=== PATIENT | female | born 1935 | race Caucasian/White ===

== ENCOUNTER 2018-02-06 07:40 | Day surgery (SDC) | payer MEDICARE, OTHER ==
[~2018-02-06 07:40] MED LIST: Acetaminophen TAB* 325 MG PO PRN; Buffered Lidocaine 0.9% SYRIN* 5 ML/SYR SYRINGE INTRADERM ONE
[2018-02-06] MEDS ORDERED: Lidocaine 1% MPF* 2 ML VIAL ONE (07:44)
[2018-02-06] MEDS ORDERED: Proparacaine 0.5% OPHTH.SOL* 15 ML BTL ONE (07:44)
[2018-02-06] MEDS ORDERED: Phenylephrine 2.5% OPTH.SOL* 2 ML BTL ONE (07:44)
[2018-02-06] MEDS ORDERED: Neomycin/Polymy/Dex OPTH.SUSP* MAXITROL 0.1% 5 ML ONE (07:44)
[2018-02-06] MEDS ORDERED: Povidone Iodine 5% OPTH* 30 ML BTL ONE (07:44)
[2018-02-06] MEDS ORDERED: acetaZOLAMIDE TAB* 250 MG ONE (07:44)
[2018-02-06] MEDS ORDERED: Ketorolac 0.5% OPHTH (NF) 0.5 % 5 ML BTL ONE (07:44)
[2018-02-06] MEDS ORDERED: Lidocaine 2% EPI 1:200000 MPF*10-20 ML VIAL ONE (07:44)
[2018-02-06] MEDS ORDERED: Cyclopentolate 1% OPTH.SOL* 2 ML BTL ONE (07:44)
[2018-02-06] MEDS ORDERED: Midazolam* 1 MG/ML 2 ML VIAL (2 MG) ONE ×2 (07:57→10:01)
[2018-02-06 10:34] VITALS: BP 154/75
--- NOTE | 2018-02-06 11:45 | OP ---
0OPERATIVE NOTE: DATE OF OPERATION: 02/06/18 DATE OF : 35 SURGEON: Aldo Syed M.D. PREOPERATIVE DIAGNOSIS: Cataract, right eye. POSTOPERATIVE DIAGNOSIS: Cataract, right eye. OPERATIVE PROCEDURE: Extracapsular cataract extraction with IOL, right eye. DESCRIPTION OF PROCEDURE: The patient was brought to the operating room after being given 1/2% Alcai ne with epinephrine drops in the preoperative area. The eye was prepped and draped in the usual ster ile fashion. Sterile drape and eyelid speculum were placed. Again, topical 1/2% Alcaine with epinep hrine was given. A paracentesis incision was made at the 9 o'clock position with the No.75 blade. Cl ear cornea incision 2.2 x 2.2-mm was created at the 12 o'clock position starting at the anterior limb us using the 2.2-mm keratome. The anterior chamber was irrigated with 0.4 mL of 1% non-preservative intracameral lidocaine and filled with DisCoVisc. A capsulorrhexis was completed using the cystotome and the Utrata forceps. Hydrodissection was performed with balanced salt solution. The lens nucleu s was removed with the Phacoemulsification handpiece without incident. Cortex was removed with the ir rigation-aspiration handpiece. The capsular bag was re-inflated using DisCoVisc and an [id number] 15.5 i mplant was inserted with the shooter. The irrigation-aspiration handpiece was used to remove all res idual DisCoVisc. The eye was refilled with balanced salt solution and the wound checked and found to be watertight. Topical Maxitrol drops were given. [id number]/[facility] #: [id number]
== END 2018-02-06 10:31 | disposition home or self-care (01) ==
LOC: OREAST 07:40
PROVIDERS: ATTEND Specialist
DX: H25.811 Combined forms of age-related cataract, right eye (principal); H33.8 Other retinal detachments; I10 Essential (primary) hypertension; E78.5 Hyperlipidemia, unspecified; E03.9 Hypothyroidism, unspecified; M19.90 Unspecified osteoarthritis, unspecified site; Z86.73 Personal history of transient ischemic attack (TIA), and cerebral infarction without residual deficits; K21.9 Gastro-esophageal reflux disease without esophagitis; Z87.440 Personal history of urinary (tract) infections
CPT/HCPCS: A9270-GY; J2250; V2632

== ENCOUNTER 2018-02-13 08:59 | Day surgery (SDC) | payer MEDICARE, OTHER ==
[2018-02-13] MEDS ORDERED: Cyclopentolate 1% OPTH.SOL* 2 ML BTL ONE (09:29)
[2018-02-13] MEDS ORDERED: Proparacaine 0.5% OPHTH.SOL* 15 ML BTL ONE (09:29)
[2018-02-13] MEDS ORDERED: Povidone Iodine 5% OPTH* 30 ML BTL ONE (09:29)
[2018-02-13] MEDS ORDERED: Neomycin/Polymy/Dex OPTH.SUSP* MAXITROL 0.1% 5 ML ONE (09:29)
[2018-02-13] MEDS ORDERED: Lidocaine 1% MPF* 2 ML VIAL ONE (09:29)
[2018-02-13] MEDS ORDERED: Lidocaine 2% EPI 1:200000 MPF*10-20 ML VIAL ONE (09:29)
[2018-02-13] MEDS ORDERED: acetaZOLAMIDE TAB* 250 MG ONE (09:29)
[2018-02-13] MEDS ORDERED: Ketorolac 0.5% OPHTH (NF) 0.5 % 5 ML BTL ONE (09:29)
[2018-02-13] MEDS ORDERED: Phenylephrine 2.5% OPTH.SOL* 2 ML BTL ONE (09:29)
[2018-02-13] MEDS ORDERED: Midazolam* 1 MG/ML 2 ML VIAL (2 MG) ONE (10:53)
[2018-02-13 11:34] VITALS: BP 151/75
--- NOTE | 2018-02-13 14:30 | OP ---
DATE OF OPERATION: 02/13/18 - [facility] DATE OF : 35 SURGEON: Aldo Syed M.D. PREOPERATIVE DIAGNOSIS: Cataract, left eye. POSTOPERATIVE DIAGNOSIS: Cataract, left eye. OPERATIVE PROCEDURE: Extracapsular cataract extraction with intraocular lens implant left eye. DESCRIPTION OF PROCEDURE: The patient was brought to the operating room after being given 1/2% Alcaine with epinephrine drops in the preoperative area. The eye was prepped and draped in the usual sterile fashion. Sterile drape and eyelid speculum were placed. Again, topical 1/2% Alcaine with epinephrine was given. A paracentesis incision was made at the 3 o'clock position with the No.75 blade. Clear cornea incision 2.2 x 2.2-mm was created at the 6 o'clock position starting at the anterior limbus using the 2.2-mm keratome. The anterior chamber was irrigated with 0.4 mL of 1% non-preservative intracameral lidocaine and filled with DisCoVisc. A capsulorrhexis was completed using the cystotome and the Utrata forceps. Hydrodissection was performed with balanced salt solution. The lens nucleus was removed with the Phacoemulsification handpiece without incident. Cortex was removed with the irrigation-aspiration handpiece. The capsular bag was re-inflated using DisCoVisc and an [id number] 15.5 implant was inserted with the shooter. The irrigation-aspiration handpiece was used to remove all residual DisCoVisc. The eye was refilled with balanced salt solution and the wound checked and found to be watertight. Topical Maxitrol drops were given. [id number]/[facility] #: [id number] MTDD
== END 2018-02-13 11:43 | disposition home or self-care (01) ==
LOC: OREAST 08:59
PROVIDERS: ATTEND Specialist
DX: H25.812 Combined forms of age-related cataract, left eye (principal); H33.8 Other retinal detachments; E03.9 Hypothyroidism, unspecified; E78.5 Hyperlipidemia, unspecified; I10 Essential (primary) hypertension; Z87.440 Personal history of urinary (tract) infections
CPT/HCPCS: A9270-GY; J2250; V2632

== ENCOUNTER → 2018-08-20 11:12 | Emergency (ER) | payer MEDICARE, OTHER ==
[2018-08-20 13:18] VITALS: BP 109/77
[2018-08-20 14:16] LABS: Hematocrit 36 % (35-47); Hemoglobin 12.6 g/dl (12.0-16.0); Mean Corpuscular HGB Conc 35 g/dl (31-36); Mean Corpuscular Hemoglobin 33 pg (27-31); Mean Corpuscular Volume 94 fL (80-97); Mean Platelet Volume 6.8 um3 (7.4-10.4); Platelet Count 219 10^3/ul (150-450); Red Blood Count 3.88 10^6/ul (4.00-5.40); Red Cell Distribution Width 12 % (10.5-15); White Blood Count 5.4 10^3/ul (3.5-10.8)
[2018-08-20 14:32] LABS: INR 0.97 (0.77-1.02)
[2018-08-20 14:38] LABS: EGFR Non-African American 51.8 (>60)
--- NOTE | 2018-08-20 15:17 | RAD ---
INDICATION: RIGHT lower extremity edema and this morning with interval improvement. COMPARISON: No relevant prior exams available on the [facility] PACS for comparison. TECHNIQUE: Lloyd scale, color Doppler, and spectral analysis of the deep veins of the RIGHT lower extremity. Vessel compression, phasicity, and augmentation assessed. REPORT: The RIGHT common femoral, great saphenous, profunda femoral, femoral, popliteal, peroneal, and posterior tibial veins are patent. Patency of the LEFT common femoral vein documented. IMPRESSION: No evidence for RIGHT lower extremity deep venous thrombosis.
--- NOTE | 2018-08-20 15:29 | ED ---
Lower Extremity - HPI Summary HPI Summary: Patient presents w/ right lower extremity swelling which started yesterday. She denies a history of swelling in this leg however admits Sunday and Sunday she was both on her feet, standing, for a while and then sitting for a while. She believes these activities contributed to swelling in this leg as she is typically able to move about throughout the day and rest as she needs. She was standing and then sitting for periods as her family was in town to celebrate her birthday and again this is not normal activity for her. She noticed the swelling yesterday during the day and it persisted today which is why she came in. She denies chest pain, shortness of breath, fever, chills, pain in the leg however she does have chronic low back pain that radiates into bilateral hips ( "sciatica"). She had lumbar laminectomy surgery in June 2018 with a surgeon at [facility]. She said she felt great the first 2 weeks (sciatica was gone) however developed return of her sciatica another 2 weeks later and has been continuing to deal with this pain since. She just saw her neurosurgical physician assistant banquet manager last week who recommended Flexeril - no concerns for infection. The patient reports she gets very tired when she takes this and it helps her sleep. Other medications she is currently taking are Lyrica and tramadol however she does not like to take the tramadol. She has a follow-up with her neurosurgical provider in another 3 weeks. No history of cardiovascular issues specifically congestive heart failure or peripheral artery disease. She reports while she's been sitting on the stretcher here in ED, waiting for her labs and ultrasound report to come back, her leg looks " much better". She reports her ankle was puffy before and now she can see the bones there. She is moving this leg well with minimal discomfort in her back only. Reports she would like to go home now as today's her birthday. Only came in today because her son who's a doctor called to check on her and asked her to get checked out - she called her PCP who sent her here w/ concern for clot in her leg. - History of Current Complaint Chief Complaint: EDExtremityLower Stated Complaint: RT LEG SWELLING Time Seen by Provider: 08/20/18 14:15 Hx Obtained From: Patient Pain Intensity: 0 - Allergies/Home Medications Allergies/Adverse Reactions: Allergies Allergy/AdvReac Type Severity Reaction Status Date / Time diclofenac Allergy Unknown ULCER Verified 08/20/18 11:24 erythromycin base Allergy Unknown Unknown Verified 08/20/18 11:24 Reaction Details ibuprofen [From Advil] Allergy Unknown Unknown Verified 08/20/18 11:24 Reaction Details metronidazole [From Flagyl] Allergy Unknown Unknown Verified 08/20/18 11:24 Reaction Details rofecoxib [From Vioxx] Allergy Unknown Unknown Verified 08/20/18 11:24 Reaction Details Sulfa (Sulfonamide Allergy Unknown Unknown Verified 08/20/18 11:24 Antibiotics) Reaction Details cefuroxime [From Ceftin] Allergy Unknown Verified 08/20/18 11:24 Reaction Details ketorolac Allergy Rash And Verified 08/20/18 11:24 Itching Penicillins Allergy Unknown Verified 08/20/18 11:24 Reaction Details PMH/Surg Hx/FS Hx/Imm Hx Previously Healthy: Yes Endocrine/Hematology History: Reports: Hx Thyroid Disease Denies: Hx Anticoagulant Therapy, Hx Blood Disorders, Hx Diabetes Cardiovascular History: Reports: Hx Hypercholesterolemia, Hx Hypertension - ON MEDS, Other Cardiovascular Problems/Disorders - HIGH CHOLESTEROL Denies: Hx Congestive Heart Failure, Hx Pacemaker/ICD Respiratory History: Reports: Hx Seasonal Allergies Denies: Hx Asthma GI History: Reports: Hx Diverticulosis, Hx Gastroesophageal Reflux Disease, Hx Irritable Bowel, Hx Ulcer History: Reports: Other Problems/Disorders - incontinence Denies: Hx Dialysis, Hx Renal Disease Musculoskeletal History: Reports: Hx Arthritis, Hx Back Problems, Hx Orthopedic Injury - Fractured Right Hip; Fractured Left Wrist, Hx Scoliosis, Other Musculoskeletal History Denies: Hx Rheumatoid Arthritis, Hx Osteoporosis Sensory History: Reports: Hx Cataracts - PRESENTLY, Hx Contacts or Glasses Denies: Hx Hearing Aid Opthamlomology History: Reports: Hx Cataracts - PRESENTLY, Hx Contacts or Glasses Neurological History: Reports: Hx Transient Ischemic Attacks (TIA), Other Neuro Impairments/Disorders - PAIN CLINIC PT. Psychiatric History: Reports: Hx Depression Denies: Hx Panic Disorder - Cancer History Hx Chemotherapy: No Hx Radiation Therapy: No - Surgical History Surgery Procedure, Year, and Place: RT-HIP PIN;. HYSTERECTOMY;. TONSILECTOMY, . LASER EYE REPAIR;. BILATERAL CATARACTS REMOVAL; Hx Anesthesia Reactions: No Infectious Disease History: No Infectious Disease History: Denies: History Other Infectious Disease, Traveled Outside the [place] in Last 30 Days - Social History Occupation: Retired Alcohol Use: None Hx Substance Use: No Substance Use Type: Reports: None Hx Tobacco Use: No Smoking Status (MU): Never Smoked Tobacco Have You Smoked in the Last Year: No Review of Systems Constitutional: Negative Negative: Fever, Chills, Fatigue Negative: Chest Pain Negative: Shortness Of Breath Gastrointestinal: Negative Genitourinary: Negative Positive: Arthralgia, Myalgia Skin: Negative Neurological: Negative Psychological: Normal All Other Systems Reviewed And Are Negative: Yes Physical Exam Triage Information Reviewed: Yes Vital Signs On Initial Exam: Initial Vitals Temp Pulse Resp BP Pulse Ox 98.1 F 87 18 124/72 96 08/20/18 11:20 08/20/18 11:20 08/20/18 11:20 08/20/18 11:20 08/20/18 11:20 Vital Signs Reviewed: Yes Appearance: Positive: Well-Appearing, No Pain Distress, Well-Nourished Skin: Positive: Warm, Skin Color Reflects Adequate Perfusion, Dry - LE's are same color B/L - no lesions, no rash, no erythema, no ecchymosis Head/Face: Positive: Normal Head/Face Inspection Eyes: Positive: EOMI ENT: Positive: Hearing grossly normal Respiratory/Lung Sounds: Positive: Breath Sounds Present Cardiovascular: Positive: Pulses are Symmetrical in both Upper and Lower Extremities. Negative: Leg Edema Left, Leg Edema Right - (-) Yenni's Abdomen Description: Positive: Nontender, Soft Musculoskeletal: Positive: Strength/ROM Intact, Pain @ - has reported mild pain in lower back w/ Rt LE movements - strength intact, Other - Rt thigh, knee, tibial region, ankle and foot appear to be normal and are NTTP Neurological: Positive: Normal, Sensory/Motor Intact, Alert, Oriented to Person Place, Time, CN Intact II-III Psychiatric: Positive: Normal Diagnostics - Vital Signs Vital Signs Temp Pulse Resp BP Pulse Ox 08/20/18 13:15 98.0 F 80 18 109/77 97 08/20/18 11:20 98.1 F 87 18 124/72 96 - Laboratory Lab Results: Lab Results 08/20/18 08/20/18 08/20/18 Range/Units 14:04 14:04 14:04 WBC 5.4 (3.5-10.8) 10^3/ul RBC 3.88 L (4.00-5.40) 10^6/ul Hgb 12.6 (12.0-16.0) g/dl Hct 36 (35-47) % MCV 94 (80-97) fL MCH 33 H (27-31) pg MCHC 35 (31-36) g/dl RDW 12 (10.5-15) % Plt Count 219 (150-450) 10^3/ul MPV 6.8 L (7.4-10.4) um3 INR (Anticoag Therapy) 0.97 (0.77-1.02) APTT 31.3 (26.0-36.3) seconds Sodium 140 (135-145) mmol/L Potassium 4.2 (3.5-5.0) mmol/L Chloride 107 (101-111) mmol/L Carbon Dioxide 27 (22-32) mmol/L Anion Gap 6 (2-11) mmol/L BUN 16 (6-24) mg/dL Creatinine 1.02 H (0.51-0.95) mg/dL Est GFR ( Amer) 62.6 (>60) Est GFR (Non-Af Amer) 51.8 (>60) BUN/Creatinine Ratio 15.7 (8-20) Glucose 95 (70-100) mg/dL Calcium 9.3 (8.6-10.3) mg/dL Total Bilirubin 0.60 (0.2-1.0) mg/dL AST 19 (13-39) U/L ALT 13 (7-52) U/L Alkaline Phosphatase 83 (34-104) U/L Total Protein 6.8 (6.4-8.9) g/dL Albumin 4.0 (3.2-5.2) g/dL Globulin 2.8 (2-4) g/dL Albumin/Globulin Ratio 1.4 (1-3) Result Diagrams: 08/20/18 14:04 08/20/18 14:04 Lab Statement: Any lab studies that have been ordered have been reviewed, and results considered in the medical decision making process. Re-Evaluation - Re-Evaluation First Eval Change: Improved Lower Extremity Course/Dx - Course Course Of Treatment: U/S: neg for DVT. Labs and vitals w/o s/sx of infection - Diagnoses Provider Diagnoses: Leg edema, right Discharge - Sign-Out/Discharge Documenting (check all that apply): Patient Departure - Discharge Plan Condition: Stable Disposition: HOME Patient Education Materials: Leg Edema (ED) Referrals: Josie Clement MD [Primary Care Provider] - Additional Instructions: Rest, elevate and perform gentle stretches to aid in prevention of return of swelling in Right leg. Avoid prolonged sitting with legs down in chair or standing. If symptoms return or your develop redness/swelling/chest pain/ shortness of breath, seek medical attention immediately. Otherwise, follow-up with PCP this week for recheck of leg. - Billing Disposition and Condition Condition: STABLE Disposition: Home
== END | disposition home or self-care (01) ==
LOC: ED 11:12
DX: R60.0 Localized edema (principal); Z86.73 Personal history of transient ischemic attack (TIA), and cerebral infarction without residual deficits; F32.9 Major depressive disorder, single episode, unspecified
CPT/HCPCS: 36415; 80053; 85027; 85610; 85730; 99282

== ENCOUNTER 2019-08-09 15:06 | Emergency (ER) | payer MEDICARE, OTHER ==
[2019-08-09 15:46] VITALS: BP 133/85
--- NOTE | 2019-08-09 16:46 | UC ---
Laceration HPI - HPI Summary HPI Summary: Pt presents with c/o laceration to left tip of thumb. Pt was using new knives at home and "cut" her thumb ~ 1500. Pt thinks she is UTD with tetanus and states she will f/u with PCP regarding need for booster. - History Of Current Complaint Chief Complaint: UCLaceration Stated Complaint: THUMB LAC Time Seen by Provider: 08/09/19 16:29 Hx Obtained From: Patient Laceration Location: Finger Mechanism Of Injury: Sharp Trauma Onset/Duration: Sudden Onset Severity: Mild Pain Intensity: 3 Aggravating Factors: Movement - Allergies/Home Medications Allergies/Adverse Reactions: Allergies Allergy/AdvReac Type Severity Reaction Status Date / Time shellfish derived Allergy Severe Swelling Verified 08/09/19 15:47 diclofenac Allergy Unknown ULCER Verified 08/09/19 15:47 erythromycin base Allergy Unknown Unknown Verified 08/09/19 15:47 Reaction Details ibuprofen [From Advil] Allergy Unknown Unknown Verified 08/09/19 15:47 Reaction Details metronidazole [From Flagyl] Allergy Unknown Unknown Verified 08/09/19 15:47 Reaction Details rofecoxib [From Vioxx] Allergy Unknown Unknown Verified 08/09/19 15:47 Reaction Details Sulfa (Sulfonamide Allergy Unknown Unknown Verified 08/09/19 15:47 Antibiotics) Reaction Details cefuroxime [From Ceftin] Allergy Unknown Verified 08/09/19 15:47 Reaction Details ketorolac Allergy Rash And Verified 08/09/19 15:47 Itching Penicillins Allergy Unknown Verified 08/09/19 15:47 Reaction Details PMH/Surg Hx/FS Hx/Imm Hx Previously Healthy: Yes Other History Of: Negative For: Anticoagulant Therapy - Surgical History Surgical History: Yes Surgery Procedure, Year, and Place: Lumbar Laminectomy 06/2018 Dr. Cartagena. RT- HIP PIN;. HYSTERECTOMY;. TONSILECTOMY,. LASER EYE REPAIR;. BILATERAL CATARACTS REMOVAL; - Family History Known Family History: Positive: Cardiac Disease - Social History Occupation: Retired Lives: With Family Alcohol Use: None Substance Use Type: None Smoking Status (MU): Never Smoked Tobacco Have You Smoked in the Last Year: No - Immunization History Most Recent Influenza Vaccination: fall 2012 Most Recent Tetanus Shot: unknown Most Recent Pneumonia Vaccination: 2009 Vaccination Up to Date: Yes Review of Systems All Other Systems Reviewed And Are Negative: Yes Constitutional: Positive: Negative Skin: Positive: Other - laceration left thumb Eyes: Positive: Negative ENT: Positive: Negative Respiratory: Positive: Negative Cardiovascular: Positive: Negative Gastrointestinal: Positive: Negative Genitourinary: Positive: Negative Motor: Positive: Negative Neurovascular: Positive: Negative Musculoskeletal: Positive: Myalgia - left distal thumb Neurological: Positive: Negative Psychological: Positive: Negative Is Patient Immunocompromised?: No Physical Exam Triage Information Reviewed: Yes Appearance: Well-Appearing Vital Signs: Initial Vital Signs Temp 98.7 F 08/09/19 15:42 Pulse 62 08/09/19 15:42 Resp 16 08/09/19 15:42 BP 133/85 08/09/19 15:42 Pulse Ox 97 08/09/19 15:42 Vital Signs Reviewed: Yes Eye Exam: Normal ENT: Positive: Hearing grossly normal Neck exam: Normal Respiratory: Positive: No respiratory distress Musculoskeletal Exam: Normal Musculoskeletal: Positive: Strength Intact, ROM Intact Neurological Exam: Normal Psychological Exam: Normal Skin Exam: Other - circular laceration of distal left thumb. it is a flap that is not moving, hematoma, bleeding controlled. Laceration Repair - Laceration Repair 1 Description: Irregular Laceration Size After Repair: Length (cm) - 1, Width (mm) - 3, Depth (mm) - 2 Modified For Repair: No Cleansing Completed Via Routine Prep: Yes Closure Material: Skin Adhesive, SteriStrips Closure Method: Single Layer Suture Of: Skin Laceration Course/Dx - Differential Dx - Laceration/Wound Differental Diagnoses: Avulsion, Hematoma - Diagnosis Provider Diagnosis: Laceration of left thumb Discharge ED - Sign-Out/Discharge Documenting (check all that apply): Patient Departure All imaging exams completed and their final reports reviewed: No Studies - Discharge Plan Condition: Stable Disposition: HOME Patient Education Materials: Finger Laceration (ED), Skin Adhesive Care (ED), Steristrips (ED) Referrals: Josie Clement MD [Primary Care Provider] - As Soon As Possible Additional Instructions: Please follow up with your PCP as soon as possible. Please keep wound clean and dry for the next 48 hours. You may remove and change the dressing if it gets wet or soiled before the 48 hours. Please do not put antibiotic ointment on the wound. - Billing Disposition and Condition Condition: STABLE Disposition: Home
== END 2019-08-09 17:05 | disposition home or self-care (01) ==
LOC: UCEAST 15:06
DX: S61.012A Laceration without foreign body of left thumb without damage to nail, initial encounter (principal); W26.0XXA Contact with knife, initial encounter; Y93.89 Activity, other specified; Y92.009 Unspecified place in unspecified non-institutional (private) residence as the place of occurrence of the external cause; Z88.8 Allergy status to other drugs, medicaments and biological substances; Z88.1 Allergy status to other antibiotic agents; Z91.013 Allergy to seafood; Z88.2 Allergy status to sulfonamides; Z88.0 Allergy status to penicillin; Z88.5 Allergy status to narcotic agent
CPT/HCPCS: 12001; 99212; G0463

== ENCOUNTER 2021-03-03 17:21 | Inpatient (IN) ==
[2021-03-03] MEDS ORDERED: Morphine 4 MG/ML VIAL (1 ml) IV ONE ×2 (17:38→18:08)
[2021-03-03 18:04] LABS: ABS Eosinophils 0.1 10^3/ul (0-0.6); ABS Monocytes 0.4 10^3/ul (0-0.8); ABS Neutrophils 3.1 10^3/ul (1.5-7.7); Eosinophil % 1.3 %; Hematocrit 37 % (35-47); Hemoglobin 12.6 g/dL (12.0-16.0); Lymphocyte % 35.3 %; Mean Corpuscular HGB Conc 34 g/dL (31-36); Mean Corpuscular Hemoglobin 32 pg (27-31); Mean Corpuscular Volume 95 fL (80-97); Mean Platelet Volume 6.6 fL (7.4-10.4); Platelet Count 179 10^3/uL (150-450); Red Blood Count 3.91 10^6 /uL (3.70-4.87); Red Cell Distribution Width 13 % (10-15); White Blood Count 5.6 10^3/uL (3.5-10.8)
[2021-03-03 18:14] LABS: Calcium 8.8 mg/dL (8.6-10.3); Potassium 4.1 mmol/L (3.5-5.0); Total Bilirubin 0.6 mg/dL (0.2-1.0)
[2021-03-03 18:20] LABS: Albumin/Globulin Ratio 1.8 (1-3); EGFR African American 67.6 (>60); EGFR Non-African American 55.9 (>60); Globulin 2.2 g/dL (2-4); Total Protein 6.2 g/dL (6.4-8.9)
[2021-03-03] MEDS ORDERED: HYDROmorphone 1 MG/1 ML SYRINGE IV SCH (22:00)
[2021-03-03] MEDS ORDERED: Senna TAB 8.6 mg TAB PO PRN (22:08)
[2021-03-03] MEDS: Morphine 2 MG/ML SYRINGE IV PRN (23:39)
[2021-03-04] MEDS: Lidocaine PATCH 5% PATCH TRANSDERM SCH ×2 (01:24→09:23)
[2021-03-04] MEDS: Enoxaparin 40 MG/0.4 ML SYR SUBCUT SCH ×2 (01:24→20:15)
[2021-03-04] MEDS: Morphine 2 MG/ML SYRINGE IV PRN (05:18)
[2021-03-04] MEDS ORDERED: oxyCODONE/Acetamin 5/325 mg TAB PO PRN (09:18)
[2021-03-04] MEDS: Senna TAB 8.6 mg TAB PO SCH (20:15)
[2021-03-04] MEDS: Lidocaine Patch REMOVE PATCH PATCH OFF SCH (22:23)
[2021-03-05] MEDS: Morphine 2 MG/ML SYRINGE IV PRN ×2 (02:22→08:15)
[2021-03-05] MEDS ORDERED: NS 0.9% 1000 ml BAG 1,000 ML IV SCH (06:45)
[2021-03-05] MEDS: Lidocaine PATCH 5% PATCH TRANSDERM SCH (08:16)
[2021-03-05] MEDS ORDERED: Midazolam 2 mg/2 ml VIAL 1 mg/ml 2 ml VIAL (2 mg) ONE (09:01)
[2021-03-05] MEDS ORDERED: fentaNYL 250 mcg/5 ml 50 MCG/ML 5 ml VIAL (250 MCG) ONE (09:01)
[2021-03-05] MEDS ORDERED: Rocuronium 50 mg VIAL 10 mg/ml 5 ml VIAL (50 mg) ONE (09:01)
[2021-03-05] MEDS ORDERED: Lidocaine 2% PF 5 ML VIAL ONE (09:02)
[2021-03-05] MEDS ORDERED: EPHEDrine (Pressors) 50 MG/ML VIAL ONE (09:02)
[2021-03-05] MEDS ORDERED: Sterile Water for Inj 0 ML ONE (09:02)
[2021-03-05] MEDS ORDERED: Phenylephrine 40 mcg/mL 10mL (400mcg) SYRINGE ONE ×2 (09:02→10:11)
[2021-03-05] MEDS ORDERED: Propofol 10 MG/ML 20 ML BTL ONE (09:02)
[2021-03-05] MEDS ORDERED: Clindamycin 900 MG/D5W BAG 900 MG/50 ML BAG IVPB ONE (09:28)
[2021-03-05] MEDS ORDERED: Lidocaine 1% w EPI 1:100,000 MDV 20 ML VIAL ONE (09:37)
[2021-03-05] MEDS ORDERED: Bupivacaine 0.25% SDV 30 ML ONE (09:38)
[2021-03-05] MEDS ORDERED: Phenylephrine IV 10 MG/ML 1 ml VIAL ONE (10:12)
[2021-03-05] MEDS ORDERED: Ondansetron 4 mg VIAL 2 MG/ML 2 ml VIAL ONE ×2 (10:38→12:07)
[2021-03-05] MEDS ORDERED: DiMENhydriNATE IV 50 mg/ml 1 ml VIAL IV PUSH PRN (10:41)
[2021-03-05] MEDS ORDERED: fentaNYL 100 mcg/2 ml 50 MCG/ML VIAL IV PRN (10:41)
[2021-03-05] MEDS ORDERED: Ondansetron 4 mg VIAL 2 MG/ML 2 ml VIAL IV PRN (10:41)
[2021-03-05] MEDS ORDERED: Naloxone 0.4 mg VIAL 0.4 mg/ml 1 ml VIAL IV PRN (10:41)
[2021-03-05] MEDS ORDERED: HYDROmorphone 1 MG/1 ML SYRINGE IV PRN (10:41)
[2021-03-05] MEDS ORDERED: Acetaminophen IV 1 GM/100ML 100 ML ONE (10:56)
[2021-03-05 13:38] LABS: ABS Eosinophils 0.2 10^3/ul (0-0.6); ABS Lymphocytes 0.7 10^3/ul (1.0-4.8); ABS Monocytes 0.4 10^3/ul (0-0.8); ABS Neutrophils 4.9 10^3/ul (1.5-7.7); Eosinophil % 3.6 %; Hematocrit 34 % (35-47); Hemoglobin 11.6 g/dL (12.0-16.0); Lymphocyte % 10.7 %; Mean Corpuscular HGB Conc 34 g/dL (31-36); Mean Corpuscular Hemoglobin 33 pg (27-31); Mean Corpuscular Volume 95 fL (80-97); Mean Platelet Volume 6.7 fL (7.4-10.4); Platelet Count 124 10^3/uL (150-450); Red Blood Count 3.54 10^6 /uL (3.70-4.87); Red Cell Distribution Width 13 % (10-15); White Blood Count 6.2 10^3/uL (3.5-10.8)
[2021-03-05 13:46] LABS: Activated Partial Thrombo Time 27.5 seconds (26.0-38.0); INR 1.17 (0.82-1.09)
[2021-03-05 13:53] LABS: EGFR African American 58.3 (>60); EGFR Non-African American 48.2 (>60)
[2021-03-05] MEDS: Clindamycin 600 MG/D5W BAG 600 MG/50 ML BAG IV SCH (18:10)
[2021-03-05] MEDS: Senna TAB 8.6 mg TAB PO SCH (20:14)
[2021-03-05] MEDS: Lidocaine Patch REMOVE PATCH PATCH OFF SCH (21:01)
[2021-03-06] MEDS: Clindamycin 600 MG/D5W BAG 600 MG/50 ML BAG IV SCH ×2 (02:00→10:10)
[2021-03-06 05:43] LABS: ABS Eosinophils 0.3 10^3/ul (0-0.6); ABS Lymphocytes 0.9 10^3/ul (1.0-4.8); ABS Monocytes 0.5 10^3/ul (0-0.8); ABS Neutrophils 3.2 10^3/ul (1.5-7.7); Eosinophil % 6.2 %; Hematocrit 32 % (35-47); Hemoglobin 11.1 g/dL (12.0-16.0); Lymphocyte % 18.2 %; Mean Corpuscular HGB Conc 35 g/dL (31-36); Mean Corpuscular Hemoglobin 33 pg (27-31); Mean Corpuscular Volume 95 fL (80-97); Mean Platelet Volume 6.8 fL (7.4-10.4); Platelet Count 112 10^3/uL (150-450); Red Blood Count 3.34 10^6 /uL (3.70-4.87); Red Cell Distribution Width 13 % (10-15); White Blood Count 4.9 10^3/uL (3.5-10.8)
[2021-03-06] MEDS: Heparin 5000 UNITS/ML 1 mL VIAL SUBCUT SCH ×3 (05:50→21:46)
[2021-03-06] MEDS: Morphine 2 MG/ML SYRINGE IV PRN ×2 (05:55→21:46)
[2021-03-06 05:58] LABS: Calcium 8.3 mg/dL (8.6-10.3); EGFR African American 60.9 (>60); EGFR Non-African American 50.4 (>60); Potassium 4.3 mmol/L (3.5-5.0)
[2021-03-06] MEDS: Lidocaine PATCH 5% PATCH TRANSDERM SCH (08:59)
[2021-03-06] MEDS ORDERED: Senna TAB 8.6 mg TAB PO PRN (17:13)
[2021-03-06] MEDS: Polyethylene Glycol 3350 17 GM PACKET PO SCH (20:12)
[2021-03-06] MEDS: Lidocaine Patch REMOVE PATCH PATCH OFF SCH (20:12)
[2021-03-06] MEDS: Senna TAB 8.6 mg TAB PO SCH (20:13)
[2021-03-07 04:17] LABS: ABS Eosinophils 0.3 10^3/ul (0-0.6); ABS Lymphocytes 1.2 10^3/ul (1.0-4.8); ABS Monocytes 0.4 10^3/ul (0-0.8); ABS Neutrophils 2.1 10^3/ul (1.5-7.7); Eosinophil % 6.9 %; Hematocrit 31 % (35-47); Hemoglobin 10.8 g/dL (12.0-16.0); Lymphocyte % 29.6 %; Mean Corpuscular HGB Conc 35 g/dL (31-36); Mean Corpuscular Hemoglobin 33 pg (27-31); Mean Corpuscular Volume 95 fL (80-97); Mean Platelet Volume 6.8 fL (7.4-10.4); Platelet Count 109 10^3/uL (150-450); Red Blood Count 3.24 10^6 /uL (3.70-4.87); Red Cell Distribution Width 13 % (10-15)
[2021-03-07 04:33] LABS: EGFR African American 63.8 (>60); EGFR Non-African American 52.7 (>60)
[2021-03-07] MEDS: Heparin 5000 UNITS/ML 1 mL VIAL SUBCUT SCH ×2 (05:03→13:37)
[2021-03-07] MEDS: Lidocaine PATCH 5% PATCH TRANSDERM SCH (08:46)
[2021-03-07] MEDS: Polyethylene Glycol 3350 17 GM PACKET PO SCH (08:47)
[2021-03-07] MEDS ORDERED: Sodium Phosphate ADULT ENEMA 133 ML BTL PR ONE (10:00)
[2021-03-07 11:19] VITALS: BP 125/52
== END 2021-03-07 14:15 ==
LOC: SSU 17:21 → ED 17:21
PROVIDERS: ADMIT Pediatrics; ATTEND Internal Medicine

== ENCOUNTER 2021-03-07 11:31 | Inpatient (IN) ==
[2021-03-07] MEDS: Senna TAB 8.6 mg TAB PO PRN (19:46)
[2021-03-07] MEDS: Heparin 5000 UNITS/ML 1 mL VIAL SUBCUT SCH (21:18)
[2021-03-08] MEDS: Heparin 5000 UNITS/ML 1 mL VIAL SUBCUT SCH ×3 (05:43→21:56)
[2021-03-09] MEDS: Heparin 5000 UNITS/ML 1 mL VIAL SUBCUT SCH ×3 (05:41→21:42)
[2021-03-09 07:28] LABS: ABS Eosinophils 0.2 10^3/ul (0-0.6); ABS Lymphocytes 0.9 10^3/ul (1.0-4.8); ABS Monocytes 0.4 10^3/ul (0-0.8); ABS Neutrophils 1.5 10^3/ul (1.5-7.7); Eosinophil % 7.6 %; Hematocrit 32 % (35-47); Lymphocyte % 29.8 %; Mean Corpuscular HGB Conc 35 g/dL (31-36); Mean Corpuscular Hemoglobin 33 pg (27-31); Mean Corpuscular Volume 95 fL (80-97); Mean Platelet Volume 6.5 fL (7.4-10.4); Platelet Count 165 10^3/uL (150-450); Red Blood Count 3.36 10^6 /uL (3.70-4.87); Red Cell Distribution Width 13 % (10-15); White Blood Count 3.1 10^3/uL (3.5-10.8)
[2021-03-09 07:38] LABS: Albumin 3.4 g/dL (3.2-5.2); Albumin/Globulin Ratio 1.4 (1-3); EGFR African American 74.9 (>60); EGFR Non-African American 61.9 (>60); Globulin 2.5 g/dL (2-4); Potassium 4.4 mmol/L (3.5-5.0); Total Bilirubin 0.7 mg/dL (0.2-1.0); Total Protein 5.9 g/dL (6.4-8.9)
[2021-03-09] MEDS: Senna TAB 8.6 mg TAB PO PRN (21:44)
[2021-03-10] MEDS: Heparin 5000 UNITS/ML 1 mL VIAL SUBCUT SCH ×3 (05:25→21:21)
[2021-03-11] MEDS: Heparin 5000 UNITS/ML 1 mL VIAL SUBCUT SCH ×2 (05:24→15:22)
[2021-03-12 06:29] VITALS: BP 157/87
[2021-03-12] MEDS ORDERED: Enoxaparin 40 MG/0.4 ML SYR SUBCUT SCH (09:00)
== END 2021-03-12 15:22 | disposition home or self-care (01) | DRG 561 ==
LOC: PMRU 14:59
PROVIDERS: ADMIT Physical Medicine & Rehabilitation; ATTEND Physical Medicine & Rehabilitation

== ENCOUNTER 2021-03-23 15:09 | Observation (INO) ==
[2021-03-23 15:47] LABS: ABS Eosinophils 0.2 10^3/ul (0-0.6); ABS Lymphocytes 0.7 10^3/ul (1.0-4.8); ABS Monocytes 0.3 10^3/ul (0-0.8); ABS Neutrophils 4.9 10^3/ul (1.5-7.7); Eosinophil % 2.7 %; Hematocrit 34 % (35-47); Hemoglobin 11.7 g/dL (12.0-16.0); Lymphocyte % 10.8 %; Mean Corpuscular HGB Conc 35 g/dL (31-36); Mean Corpuscular Hemoglobin 33 pg (27-31); Mean Corpuscular Volume 94 fL (80-97); Mean Platelet Volume 6.5 fL (7.4-10.4); Platelet Count 259 10^3/uL (150-450); Red Blood Count 3.57 10^6 /uL (3.70-4.87); Red Cell Distribution Width 13 % (10-15); White Blood Count 6.1 10^3/uL (3.5-10.8)
[2021-03-23 16:10] LABS: Albumin 3.9 g/dL (3.2-5.2); Albumin/Globulin Ratio 1.4 (1-3); Calcium 9.6 mg/dL (8.6-10.3); EGFR African American 70.2 (>60); Globulin 2.7 g/dL (2-4); Magnesium 2.1 mg/dL (1.9-2.7); Potassium 4.3 mmol/L (3.5-5.0); Total Bilirubin 0.5 mg/dL (0.2-1.0); Total Protein 6.6 g/dL (6.4-8.9)
[2021-03-23 16:55] LABS: Troponin I 0.01 ng/mL (<0.03)
[2021-03-23] MEDS ORDERED: Al Hydrox/Mg Hydrox/Simet LIQ 30 ML UDC PO PRN (17:41)
[2021-03-23] MEDS ORDERED: Polyethylene Glycol 3350 17 GM PACKET PO PRN (17:44)
[2021-03-23] MEDS ORDERED: Senna TAB 8.6 mg TAB PO PRN (17:44)
[2021-03-23 19:27] LABS: Urine Appearance Cloudy; Urine Bilirubin Negative (Negative); Urine Blood Negative (Negative); Urine Color Yellow; Urine Glucose Negative (Negative); Urine Ketones Negative (Negative); Urine Nitrite Negative (Negative); Urine Protein Negative (Negative); Urine Specific Gravity 1.019 (1.002-1.030); Urine Urobilinogen Negative (Negative)
[2021-03-23] MEDS ORDERED: Heparin 5000 UNITS/ML 1 mL VIAL SUBCUT SCH (22:00)
[2021-03-24] MEDS ORDERED: Regadenoson 0.4 MG/5 ML SYRINGE ONE (11:43)
[2021-03-24] MEDS ORDERED: Aminophylline 25 MG/ML VIAL ONE (11:43)
[2021-03-24 16:20] VITALS: BP 139/63
== END 2021-03-24 16:20 | disposition home or self-care (01) ==
LOC: ED 15:09 → MEDTELE 15:09
PROVIDERS: ADMIT Hospitalist; ATTEND Hospitalist